=== PATIENT | male | born 1975 | race Caucasian/White ===

== ENCOUNTER 2018-08-03 10:38 | Emergency (ER) | payer MEDICAID ==
[~2018-08-03] VITALS: Ht 162.6 cm; Wt 94.3 kg
[2018-08-03 10:42] VITALS: Ht 162.6 cm; Wt 94.3 kg
[2018-08-03 11:23] LABS: BASOPHIL % 0.6 % (0-2); PLATELET COUNT 283 x10^3mcL (130-400); RED CELL DISTRIBUTION WIDTH 13.4 % (11.5-14.5)
[2018-08-03 11:47] LABS: CALCIUM 9.4 mg/dL (8.5-10.1); CHLORIDE SERUM 105 mmol/L (98-107); CREATININE SERUM 0.8 mg/dL (0.7-1.3); GFR1 > 60 mL/min; GLUCOSE SERUM 90 mg/dL (74-106); POTASSIUM SERUM 3.8 mmol/L (3.5-5.1); SODIUM SERUM 142 mmol/L (136-145)
[2018-08-03 11:52] LABS: ALBUMIN 4.2 g/dL (3.4-5.0); ALKALINE PHOSPHATASE 97 U/L (46-116); ALT/SGPT 44 U/L (16-63); AST/SGOT 24 U/L (15-37); TOTAL PROTEIN, SERUM 7.9 g/dL (6.4-8.2)
[2018-08-03 13:01] VITALS: BP 140/74
== END 2018-08-03 13:15 | disposition home or self-care (01) ==
LOC: ED 10:38
PROVIDERS: Emergency Medicine
DX: R07.89 Other chest pain (principal); R51 Headache; R42 Dizziness and giddiness; R00.2 Palpitations
CPT/HCPCS: 36415; Q0092